=== PATIENT | female | born 1990 | race Caucasian/White ===

== ENCOUNTER 2016-10-25 10:45 | Emergency (ER) | payer SELFPAY ==
[2016-10-25 09:58] LABS: BASOPHILS 0.7 %; BASOPHILS ABSOLUTE 0.07 10/3/uL (0.0-0.16); EOSINOPHILS 1.4 %; EOSINOPHILS ABSOLUTE 0.15 10/3/uL (0.0-0.53); HEMOGLOBIN 15.1 g/dL (12.0-16.0); IMMATURE GRANULOCYTES 0.2 %; IMMATURE GRANULOCYTES ABSOLUTE 0.02 10/3/uL (0.0-0.11); LYMPHOCYTES 28.1 %; MEAN CORPUS HGB CONC 34.3 g/dL (32.0-36.0); MEAN CORPUSCULAR HEMOGLOB 31.9 pg (26.0-34.0); MEAN CORPUSCULAR VOLUME 92.8 fL (80-100); MEAN PLATELET VOLUME 8.7 fL (9.2-13.0); MONOCYTES 8.3 %; MONOCYTES ABSOLUTE 0.89 10/3/uL (0.21-1.20); NEUTROPHILS 61.3 %; NEUTROPHILS ABSOLUTE 6.55 10/3/uL (2.02-8.40); PLATELET COUNT 323 10/3/uL (150-400); RBC DISTRIBUTION WIDTH 12.9 % (12.0-16.0); RED CELL COUNT 4.74 10/6/uL (4.0-5.6); WHITE BLOOD CELLS 10.7 10/3/uL (4.5-10.5)
[2016-10-25 09:59] LABS: MANUAL DIFF NO %
[2016-10-25 10:20] LABS: A/G RATIO 1.1 (0.7-1.9); ALKALINE PHOSPHATASE 80 U/L (45-117); BUN (BLOOD UREA NITROGEN) 12 MG/DL (6-23); CALCIUM, SERUM 9.8 MG/DL (8.5-10.4); CHLORIDE, SERUM 104 MMOL/L (96-112); CO2 (CARBON DIOXIDE) 24 MMOL/L (24-34); CREATININE 0.69 MG/DL (0.55-1.02); FREE T4 1.09 NG/DL (0.76-1.46); GFR AFRICAN AMERICAN 137 ML/MIN (>=60); GFR NON AFRICAN AMERICAN 118 ML/MIN (>=60); GLOBULIN 3.7 G/DL (2.5-4.1); GLUCOSE, SERUM 102 MG/DL (60-99); SGOT(AST) 18 U/L (5-40); SGPT(ALT) 27 U/L (5-65); SODIUM, SERUM 138 MMOL/L (135-148); TOTAL BILIRUBIN 0.5 MG/DL (0-1.2); TOTAL PROTEIN 7.7 G/DL (6.0-8.5); TROPONIN I <0.02 NG/ML (<0.05); ULTRASENSITIVE TSH 0.566 MCIU/ML (0.358-3.740)
[~2016-10-25 10:45] MED LIST: BUSPAR30 MG PO; PCET PO
== END 2016-10-25 11:05 | disposition home or self-care (01) ==
LOC: ER 10:45
PROVIDERS: Emergency Medicine
DX: F41.9 Anxiety disorder, unspecified (principal); R07.9 Chest pain, unspecified; F17.200 Nicotine dependence, unspecified, uncomplicated; Z88.5 Allergy status to narcotic agent; Z91.040 Latex allergy status; Z79.899 Other long term (current) drug therapy
CPT/HCPCS: 80053; 84439; 84443; 84484; 85025; 93005; 99285

== ENCOUNTER 2016-12-21 13:25 | Inpatient (IN) | payer SELFPAY ==
--- NOTE | ~2016-12-21 | HP ---
History And Physical [place] [id number] [facility] [place]. [address] NAME: DISHA ARMSTRONG : 86 STATUS : ADM IN [facility]#: [id number] AGE: 26 ADM/REG DATE : 12/21/16 MR#: [id number] REPORT SERV DATE: 12/21/16 DICTATED BY: VINCENT SINGLETARY DATE: 12/21/16 REPORT STATUS : Draft TRANSCRIBED BY: MODL DATE: 12/21/16 DATE OF ADMISSION: 12/21/2016 ATTENDING PHYSICIAN: Dr. Akash Garcia. REASON FOR ADMISSION: Persistent diarrhea and CT scan suspicious for colitis. EXAMINING PHYSICIAN: Vincent Singletary M.D. HISTORY OF PRESENT ILLNESS: This is a 26-year-old white female, who has had years of abdominal pain and diarrhea intermittently. She has this about every one-to-two weeks with a mucoid stool. She has no blood in the stool. This morning, she began with severe abdominal pain in the mid pelvis and the right lower quadrant. She came to the emergency room where she was examined by Ritesh Peterson, nurse practitioner, and found to have abdominal pain and elevated white count. The suspicion is actually for inflammatory bowel disease and this is consistent with her history. She does have a history of ankylosing spondylitis as had been seen by [facility] Dr. Erlinda Jack, and most recently had an appointment in July 2016 but she did not make it. She has never had a colonoscopy. 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 She says she has had the last flare about six months ago and has had five-to-six flare ups over a lifetime. She has not been treated with any rheumatologic drugs and is on no medications at home at this time. She occasionally has vomiting. She has a foul-smelling stool that occurs intermittently. No prior antibiotic history. She has not had malabsorptive symptoms. No dumping syndrome. No colonic surgery and no fever, chills, or night sweats. There has been no blood in the stool as well. She is being admitted to the hospital for IV fluid resuscitation initially. I checked the sedimentation rate and procalcitonin. No stool had yet been obtained. PAST MEDICAL HISTORY: She had a gallbladder surgery in the past; three C-sections, the last one being in 2010. ALLERGIES: CODEINE, HYDROCODONE, AND LATEX CAUSED HER ITCHING AND RASH, THEREFORE BOTH MORPHINE AND DILAUDID WILL BE EXCLUDED. HOME MEDICATIONS: None. FAMILY HISTORY: Her mother had COPD. She has one brother and one sister, both alive and well. Father had an appendix and possible liver tumor in the past. She did have a grandmother who had some sort of arthritis as well. SOCIAL HISTORY: She grew up in [place]. She was to her , the father of three children, now living back with him. She has worked at [employer] and some various jobs in the past but is unemployed at this time. She smokes cigarettes about a half pack a day. History And Physical [address] [address] NAME: DISHA ARMSTRONG : [birth year] STATUS : ADM [facility]#: [id number] AGE: 26 ADM/REG DATE : 12/21/16 MR#: [id number] REPORT SERV DATE: 12/21/16 DICTATED BY: VINCENT SINGLETARY DATE: 12/21/16 REPORT STATUS : Draft TRANSCRIBED BY: ANNA DATE: 12/21/16 She drinks beer usually [id number] at a time, last beer she took was 2 days ago and she does not drink regularly. She does not attend alevism. She does not use illicit drugs. REVIEW OF SYSTEMS: She has occasional headache but not a prominent feature. She has no change in vision. She does have eye pain when she has flare ups of the iritis. No decrease in hearing. She has occasional vomiting and burping and belching with a bad tasting gaseous eruption. She has odor to her stool that is mostly like methane gas and anaerobic in smell when she has flare ups of the diarrhea. She has had no blood in the stool. No hematemesis. No fever, chills, night sweats, melena, hematemesis, or unilateral weakness. The remainder of the review of systems is negative. She does have ankylosing spondylitis diagnosed by the punch press setter in the past. She has had no weight loss and has had some weight gain. PHYSICAL EXAMINATION: VITAL SIGNS: Blood pressure was 137/87 with a heart rate of 109, respiratory rate 20, temperature was 98.3, and respiratory rate was 20. HEENT: EOMI. Sclerae clear. Conjunctivae pink. NECK: No bruit without any JVD. Pharynx clear. CHEST: Clear to A and P. HEART: Regular S1, S2 without murmur, gallop, or click. BREASTS: Grossly without mass. ABDOMEN: Soft. There is minimal tenderness in the mid lower pelvic area below the umbilicus in the right lower quadrant; however, the abdomen is soft and bowel sounds are not active. EXTREMITIES: Have no edema. Distal pulses are intact, dorsalis pedis posterior tibial. SKIN: There is a tattoo on the right foot with a cascade of stars. NEUROLOGIC: She withdraws to plantar stimulation. Stamp Red[employer] Clerk equal and symmetric bilaterally. Coordination intact. She has no tremor. She is symmetric and equal neurologically bilaterally. Sensory and motor are intact. LYMPHATICS: There is no adenopathy. LABORATORY DATA: Sedimentation rate was 2. Lactate 0.7. CT scan of the abdomen and pelvis, there are numerous fluid-filled loops of bowel and small and large intestine consistent with enterocolitis, nonobstructing 2 mm calculus. The sodium 139, potassium 4.2, CO2 of 20, BUN 12, creatinine 0.83, glucose 109, total protein was 8.6 with an albumin of 4.5, lipase 104. Liver tests otherwise negative. Urinalysis shows a specific gravity of 1.019, pH of 5, negative dip. Urine HCG negative. White count 19,100, hemoglobin 16, hematocrit 46.5, and platelets 291,000. ASSESSMENT: History And Physical [address] [address] NAME: DISHA ARMSTRONG : [birth year] STATUS : ADM [facility]#: [id number] AGE: 26 ADM/REG DATE : 12/21/16 MR#: [id number] REPORT SERV DATE: 12/21/16 DICTATED BY: VINCENT SINGLETARY DATE: 12/21/16 REPORT STATUS : Draft TRANSCRIBED BY: ANNA DATE: 12/21/16 1. Abdominal pain. 2. Diarrhea for years duration, worse this morning with more abdominal pain. 3. Colitis, possibly inflammatory bowel disease, strongly suspected at this point. 4. Ankylosing spondylitis versus an arthropathy associated with an inflammatory bowel disease though the sedimentation rate being 2, mitigates against this. 5. History of iritis treated with topical drugs in the past, also consistent with ankylosing spondylitis and possibly secondary to ulcerative colitis or Crohn's disease. 6. Multiple pain medicine allergies. PLAN: IV fluid hydration. Consult GI. We will not add steroids at this point with the low sedimentation rate. We will get stool culture and then consider Flagyl. Check stool studies. With sedimentation rate of 2, holding on the antibiotics until studies are all obtained. Consult GI for possible colonoscopy. Clear liquids until that time. GI coverage listed in the emergency room is Dr. Marino Pearce. We will refer to Dr. Marino Pearce for additional help with the workup and colonoscopy. DB/MODL Vincent Singletary M.D. / [id number] CC: MD Erlinda Simpson M.D. Alan Shikoh, M.D.
--- NOTE | ~2016-12-21 | DS ---
Discharge Summary [place] [id number] [place]. [address] NAME: DISHA ARMSTRONG : 86 STATUS : DIS IN PAT#: [id number] AGE: 26 ADM/REG DATE : 12/21/16 MR#: [id number] REPORT SERV DATE: 12/24/16 DICTATED BY: DATE: REPORT STATUS : Draft TRANSCRIBED BY: MODL DATE: 12/23/16 ADMISSION DATE: 12/21/2016 DISCHARGE DATE: 12/23/2016 DISCHARGE DIAGNOSES: 1. Abdominal pain. 2. Diarrhea. 3. Ankylosing spondylitis. 4. History of iritis. 5. Leukocytosis. CONSULTING PHYSICIAN: Include Dr. Latif with GI Medicine. DISCHARGE MEDICATIONS: Include: 1. Levaquin 750 mg p.o. daily. 2. Flagyl 500 mg p.o. b.i.d. x7 days. IMAGING: Includes CT of the abdomen and pelvis without contrast, which demonstrated numerous fluid-filled loops of small intestine and fluid throughout the colon and rectum consistent with diffuse enterocolitis. For full H and P, please refer to Dr. Mauricio Malin's dictation on 12/21/2016. Please also see Dr. Dangelo Latif's consultation dictation on 12/22/2016. HOSPITAL COURSE/PROBLEM LIST: 1. Abdominal pain. The patient has a significant history of multiple episodes of diarrhea for several years. She has not had great followup with the GI physician because she has not had insurance, has not been able to pay for her care. During her hospital course, we obtained stool cultures, which were all negative for C difficile, Cryptosporidium, and Giardia. Her stool was negative for occult blood. Shiga toxin was also negative. After stool studies were obtained, the patient was started on IV Flagyl and Levaquin. Overnight, her symptoms have been improved. She still has some abdominal pain and "gas." However, her diarrhea has drastically decreased and she requested to go home at this time, so I will discharge her with p.o. Flagyl and Levaquin for one week. She is in the process of obtaining insurance through [place] Medicaid, which she believes she will be able to obtain in the next several weeks. We discussed at length the importance of followup with establishing care with a primary care provider as well as follow up with practical ministries professor for further workup, possible Crohn versus inflammatory bowel disease versus ulcerative colitis, unclear what the origin of her abdominal pain and diarrhea is at this time. Based on the CT findings of enterocolitis, this could possibly be a viral bacterial infection, but again and also could be autoimmune disorder that she will need followup for. 2. Diarrhea. As mentioned above, this is improved greatly. 3. Ankylosing spondylitis, stable. 4. History of iritis. 5. Leukocytosis. Initially, the patient's white blood cell count was 19.1, today is down to 8.8, it is within normal limits. Again, I will continue Noel and Shabbir for one Discharge Summary [address] [place]. [address] NAME: DISHA ARMSTRONG : 86 STATUS : DIS IN PAT#: [id number] AGE: 26 ADM/REG DATE : 12/21/16 MR#: [id number] REPORT SERV DATE: 12/24/16 DICTATED BY: DATE: REPORT STATUS : Draft TRANSCRIBED BY: MODL DATE: 12/23/16 week. The patient was educated on when to return to the hospital or followup as an outpatient if symptoms return, worsen or if she develops fevers, chills, blood in her stools, etc. This discharge took greater than 30 minutes due to education of the patient of importance of followup as well as medication reconciliation. TABATHA/ANNA Wisam aLla NP / [id number] CC: MD SCOTT Dc ROBERT L.
--- NOTE | ~2016-12-21 | CN ---
Consultation Report [address] [place]. [address] NAME: DISHA ARMSTRONG : [birth year] STATUS : ADM IN PAT#: [id number] AGE: 26 ADM/REG DATE : 12/21/16 MR#: [id number] REPORT SERV DATE: 12/22/16 DICTATED BY: TRUPTI SALES DATE: 12/22/16 REPORT STATUS : Draft TRANSCRIBED BY: ANNA DATE: 12/22/16 CONSULTATION DATE OF CONSULTATION: 12/22/2016 LOCATION: Bed 511. I am asked to see this lady in the absence of Dr. Pearce. HISTORY OF PRESENT ILLNESS: This 26-year-old woman has had difficulty with recurrent colitis symptoms. She notes recurrent abdominal pain, cramps, and diarrhea with some bleeding. She was admitted at this time because of increasing severity of symptoms. Past history is remarkable for ankylosing spondylitis. She also has had a history of iritis, treated with steroid drops in the past. She has not had a GI workup and has not had colonoscopy. She currently denies upper abdominal pain, nausea, or vomiting. GENERAL REVIEW OF SYSTEMS: Otherwise negative. PHYSICAL EXAMINATION: CHEST: Clear. CARDIAC: Regular rhythm. ABDOMEN: Soft and nontender. Bowel sounds are active. No palpable mass. CT of the abdomen has shown abnormal gas pattern in both the small intestine and the colon. White count is 19,000, hemoglobin is 14.5. IMPRESSION: Subacute and chronic bowel symptoms, question has been raised about inflammatory bowel disease. PLAN: For the time being, we will add Flagyl and gradually increase diet. Dr. Pearce will follow on his return in a day or so. Thank you for allowing me to see this lady. Sincerely, THERESA/ANNA Trupti Consultation Report [address] [place]. [address] NAME: DISHA ARMSTRONG : 86 STATUS : ADM IN PAT#: [id number] AGE: 26 ADM/REG DATE : 12/21/16 MR#: [id number] REPORT SERV DATE: 12/22/16 DICTATED BY: TRUPTI SALES DATE: 12/22/16 REPORT STATUS : Draft TRANSCRIBED BY: MODL DATE: 12/22/16 Yoly Sales / [id number] CC: Juve Sorto MD
[2016-12-21 11:31] LABS: BASOPHILS 0.2 %; BASOPHILS ABSOLUTE 0.03 10/3/uL (0.0-0.16); EOSINOPHILS 0.9 %; EOSINOPHILS ABSOLUTE 0.18 10/3/uL (0.0-0.53); HEMATOCRIT 46.5 % (36.0-48.0); HEMOGLOBIN 16.6 g/dL (12.0-16.0); IMMATURE GRANULOCYTES 0.4 %; IMMATURE GRANULOCYTES ABSOLUTE 0.07 10/3/uL (0.0-0.11); LYMPHOCYTES 9.8 %; LYMPHOCYTES ABSOLUTE 1.87 10/3/uL (0.67-4.30); MEAN CORPUS HGB CONC 35.7 g/dL (32.0-36.0); MEAN CORPUSCULAR HEMOGLOB 33.2 pg (26.0-34.0); MEAN PLATELET VOLUME 8.5 fL (9.2-13.0); MONOCYTES 9.2 %; MONOCYTES ABSOLUTE 1.75 10/3/uL (0.21-1.20); NEUTROPHILS 79.5 %; NEUTROPHILS ABSOLUTE 15.15 10/3/uL (2.02-8.40); PLATELET COUNT 291 10/3/uL (150-400); RBC DISTRIBUTION WIDTH 14.4 % (12.0-16.0)
[2016-12-21 11:32] LABS: MANUAL DIFF NO %; WHITE BLOOD CELLS 19.1 10/3/uL (4.5-10.5)
[2016-12-21 11:39] LABS: ASCORBIC ACID (UR NOT ORDER) NEG (NEG); BILIRUBIN, URINE NEGATIVE (NEG); ER URINALYSIS TAT 0 Hrs 11 Mins; KETONE, URINE NEGATIVE (NEG); LEUKOCYTE ESTERASE(NOT OR NEG (NEG); NITRITE (URINE) NEG (NEG); WBC (NOT ORDERED) (RFLEX) 1 (0-5)
[2016-12-21 11:46] LABS: A/G RATIO 1.1 (0.7-1.9); ALBUMIN 4.5 G/DL (3.5-5.0); BUN (BLOOD UREA NITROGEN) 12 MG/DL (6-23); CALCIUM, SERUM 9.6 MG/DL (8.5-10.4); CHLORIDE, SERUM 111 MMOL/L (96-112); CO2 (CARBON DIOXIDE) 20 MMOL/L (24-34); CREATININE 0.83 MG/DL (0.55-1.02); GFR AFRICAN AMERICAN 111 ML/MIN (>=60); GFR NON AFRICAN AMERICAN 96 ML/MIN (>=60); GLOBULIN 4.1 G/DL (2.5-4.1); GLUCOSE, SERUM 109 MG/DL (60-99); POTASSIUM, SERUM 4.2 MMOL/L (3.5-5.3); SGOT(AST) 15 U/L (5-40); SGPT(ALT) 24 U/L (5-65); SODIUM, SERUM 139 MMOL/L (135-148); TOTAL PROTEIN 8.6 G/DL (6.0-8.5)
[2016-12-21 11:48] LABS: ALKALINE PHOSPHATASE 104 U/L (45-117); TOTAL BILIRUBIN 1.2 MG/DL (0-1.2)
[2016-12-21 13:33] LABS: LACTATE 0.7 MMOL/L (0.3-2.4)
[2016-12-21 17:25] LABS: C-REACTIVE PROTEIN 4.5 MG/L (<8.0)
[2016-12-21 17:46] LABS: PROCALCITONIN <0.05 ng/mL (<0.5)
[2016-12-23 06:58] LABS: BASOPHILS 0.2 %; BASOPHILS ABSOLUTE 0.02 10/3/uL (0.0-0.16); EOSINOPHILS 2.9 %; EOSINOPHILS ABSOLUTE 0.25 10/3/uL (0.0-0.53); HEMOGLOBIN 13.7 g/dL (12.0-16.0); IMMATURE GRANULOCYTES 0.2 %; IMMATURE GRANULOCYTES ABSOLUTE 0.02 10/3/uL (0.0-0.11); LYMPHOCYTES 30.7 %; LYMPHOCYTES ABSOLUTE 2.69 10/3/uL (0.67-4.30); MEAN CORPUSCULAR HEMOGLOB 32.7 pg (26.0-34.0); MEAN PLATELET VOLUME 8.8 fL (9.2-13.0); MONOCYTES 9.6 %; MONOCYTES ABSOLUTE 0.84 10/3/uL (0.21-1.20); NEUTROPHILS 56.4 %; NEUTROPHILS ABSOLUTE 4.94 10/3/uL (2.02-8.40); PLATELET COUNT 249 10/3/uL (150-400); RBC DISTRIBUTION WIDTH 14.2 % (12.0-16.0); RED CELL COUNT 4.19 10/6/uL (4.0-5.6)
[2016-12-23 07:00] LABS: HEMATOCRIT 40.3 % (36.0-48.0); MANUAL DIFF NO %; MEAN CORPUSCULAR VOLUME 96.2 fL (80-100); WHITE BLOOD CELLS 8.8 10/3/uL (4.5-10.5)
[2016-12-23 07:18] LABS: CHLORIDE, SERUM 111 MMOL/L (96-112); CO2 (CARBON DIOXIDE) 24 MMOL/L (24-34); CREATININE 0.65 MG/DL (0.55-1.02); GFR AFRICAN AMERICAN 140 ML/MIN (>=60); GFR NON AFRICAN AMERICAN 121 ML/MIN (>=60); GLUCOSE, SERUM 93 MG/DL (60-99); POTASSIUM, SERUM 4.1 MMOL/L (3.5-5.3); SODIUM, SERUM 141 MMOL/L (135-148)
[2016-12-23 07:20] LABS: BUN (BLOOD UREA NITROGEN) 6 MG/DL (6-23); CALCIUM, SERUM 8.6 MG/DL (8.5-10.4)
[2016-12-23] MEDS ORDERED: FLAG500TAB PO (11:01)
[2016-12-23] MEDS ORDERED: LEVAQUIN750 MG PO (11:01)
== END 2016-12-23 11:54 | disposition home or self-care (01) | DRG 392 ==
LOC: ER 13:25 → 5SO 14:19
PROVIDERS: Nurse Practitioner; Nurse Practitioner Acute Care
DX: R19.7 Diarrhea, unspecified (principal); D72.829 Elevated white blood cell count, unspecified; R10.9 Unspecified abdominal pain; M45.9 Ankylosing spondylitis of unspecified sites in spine; Z90.49 Acquired absence of other specified parts of digestive tract; Z98.890 Other specified postprocedural states; Z88.5 Allergy status to narcotic agent; Z91.040 Latex allergy status; F17.210 Nicotine dependence, cigarettes, uncomplicated
CPT/HCPCS: 74176; 80048; 80053; 81001; 82272; 83605; 83690; 84145; 84703; 85025; 85652; 86140; 87040; 87045; 87046; 87046-59; 87328; 87329; 87493; 87493-59; 87899; 87899-59; 89055; 96374; 96375; 99285; A9270-GY; J1170; J1956; J2405